=== PATIENT | male | born 1940 | race Caucasian/White ===

== ENCOUNTER 2018-02-10 08:49 | Emergency (ER) | payer BC ==
[~2018-02-10] VITALS: Ht 177.8 cm; Wt 74.8 kg
[2018-02-10 08:58] VITALS: Ht 177.8 cm; Wt 74.8 kg
[2018-02-10 10:37] VITALS: BP 183/73
== END 2018-02-10 10:37 | disposition home or self-care (01) ==
LOC: ED 08:49
DX: M54.42 Lumbago with sciatica, left side (principal); I10 Essential (primary) hypertension
CPT/HCPCS: J3010; J3490